=== PATIENT | male | born 1980 | race African-American/Black ===

== ENCOUNTER 2016-08-16 00:18 | Emergency (ER) | payer SELFPAY ==
[2016-08-16 01:27] VITALS: BP 128/76; PULSE 58; TEMP 97.4; BMI 29.9
[2016-08-16] MEDS ORDERED: KETOROLAC TROMETHAMINE 60 MG/2 ML VIAL IM ONE (02:34)
[2016-08-16] MEDS ORDERED: diazePAM 5 MG TABLET PO ONE (02:35)
--- NOTE | 2016-08-16 02:36 | PDOC ---
History of Present Illness - General History Source: Patient Exam Limitations: No Limitations - History of Present Illness Initial Comments: 08/16/16 03:03 The patient is a 36 year old male, with significant past medical history of chronic back pain secondary to herniated discs, who presents today complaining of lower back pain. The patient states that he could not get out of bed this morning because his back went out. He notes that his back was hurting throughout the week, but was able to take tramadol and galaxin with relief. However, today the pain was unbearable and the patient is unable to get out of bed. The patient works at [employer] and does heavy lifting. Denies paresthesias of the lower extremities. Denies any recent trauma. Denies neck pain. Allergies: none reported Dr. Lauro Mendoza <Chantell Gutierrez - Last Filed: 08/16/16 03:29> <Scarlet Hernandes - Last Filed: 08/17/16 05:14> - General Chief Complaint: Pain, Acute Stated Complaint: BACK PAIN Time Seen by Provider: 08/16/16 02:15 Past History <Chantell Gutierrez - Last Filed: 08/16/16 03:29> - Past Medical History Other medical history: Pt denies - Psycho/Social/Smoking Cessation Hx Anxiety: No Suicidal Ideation: No Smoking Status: No Smoking History: Never smoked Number of Cigarettes Smoked Daily: 0 Information on smoking cessation initiated: No Hx Alcohol Use: No Drug/Substance Use Hx: No Substance Use Type: None <Scarlet Hernandes - Last Filed: 08/17/16 05:14> - Past Medical History Allergies/Adverse Reactions: Allergies Allergy/AdvReac Type Severity Reaction Status Date / Time No Known Allergies Allergy Verified 08/16/16 01:24 Home Medications: Ambulatory Orders No Home Medications 0 dose .ROUTE UTDICT 05/02/12 Review of Systems - Review of Systems Able to Perform ROS?: Yes Comments:: 08/16/16 03:05 GENERAL/CONSTITUTIONAL: No fever or chills. No weakness. HEAD, EYES, EARS, NOSE AND THROAT: No change in vision. No ear pain or discharge. No sore throat. CARDIOVASCULAR: No chest pain or shortness of breath. RESPIRATORY: No cough, wheezing, or hemoptysis. GASTROINTESTINAL: No nausea, vomiting, diarrhea or constipation. GENITOURINARY: No dysuria, frequency, or change in urination. MUSCULOSKELETAL:+lower back pain. No joint or muscle swelling or pain. No neck. SKIN: No rash NEUROLOGIC: No headache, vertigo, loss of consciousness, or change in strength/ sensation. ENDOCRINE: No increased thirst. No abnormal weight change. HEMATOLOGIC/LYMPHATIC: No anemia, easy bleeding, or history of blood clots. ALLERGIC/IMMUNOLOGIC: No hives or skin allergy. <MattChantell - Last Filed: 08/16/16 03:29> *Physical Exam - Vital Signs Last Vital Signs Temp Pulse Resp BP Pulse Ox 97.4 F L 58 L 19 128/76 97 08/16/16 01:25 08/16/16 01:08/16/16 01:08/16/16 01:08/16/16 01:25 - Physical Exam Comments: 08/16/16 03:06 GENERAL: Awake, alert, and fully oriented, in no acute distress HEAD: No signs of trauma EYES: PERRLA, EOMI, sclera anicteric, conjunctiva clear ENT: Auricles normal inspection, hearing grossly normal, nares patent, oropharynx clear without exudates. Moist mucosa NECK: Normal ROM, supple, no lymphadenopathy, JVD, or masses LUNGS: Breath sounds equal, clear to auscultation bilaterally. No wheezes, and no crackles HEART: Regular rate and rhythm, normal S1 and S2, no murmurs, rubs or gallops ABDOMEN: Soft, nontender, normoactive bowel sounds. No guarding, no rebound. No masses BACK: +lumbar spine tenderness. EXTREMITIES: +Pain with straight leg raise bilaterally. Decreased reflexes in the knee. No edema. No clubbing or cyanosis. No cords, erythema, or tenderness NEUROLOGICAL: Cranial nerves II through XII grossly intact. Normal speech, normal gait SKIN: Warm, Dry, normal turgor, no rashes or lesions noted. <LynnenestorChantell - Last Filed: 08/16/16 03:29> - Vital Signs Last Vital Signs Temp Pulse Resp BP Pulse Ox 97.4 F L 58 L 19 128/76 97 08/16/16 01:25 08/16/16 01:08/16/16 01:08/16/16 01:08/16/16 01:25 <Scarlet Hernandes - Last Filed: 08/17/16 05:14> ED Treatment Course - RADIOLOGY Radiograph Interpretation: 08/16/16 03:29 Exam: CT lumbar spine without contrast Images: [id number] Clinical indication: Lower back pain. Findings: The bone mineralization appears normal. The vertebral body heights and disc spaces are preserved. Mild spondylosis is noted. Anatomic alignment of the lumbar spine is maintained. No fracture or listhesis is seen. No adenopathy collection or hematoma is seen in the paraspinal soft tissues. The sacrum is unremarkable. The visualized retroperitoneum and pelvic contents are unremarkable. Impression: No acute abnormality seen in the lumbar spine, sacrum, visualized retroperitoneum or pelvis. THIS DOCUMENT HAS BEEN ELECTRONICALLY SIGNED Darian Bermudez M.D. <Chantell Gutierrez - Last Filed: 08/16/16 03:29> Medical Decision Making - Medical Decision Making 08/16/16 03:24 Patient Name: Ezequiel Longoria This is a preliminary report by imaging net applications developer Exam: CT lumbar spine without contrast Images: [id number] Clinical indication: Lower back pain. Findings: The bone mineralization appears normal. The vertebral body heights and disc spaces are preserved. Mild spondylosis is noted. Anatomic alignment of the lumbar spine is maintained. No fracture or listhesis is seen. No adenopathy collection or hematoma is seen in the paraspinal soft tissues. The sacrum is unremarkable. The visualized retroperitoneum and pelvic contents are unremarkable. Impression: No acute abnormality seen in the lumbar spine, sacrum, visualized retroperitoneum or pelvis. THIS DOCUMENT HAS BEEN ELECTRONICALLY SIGNED 08/17/16 05:09 Pt states that all of a sudden at home his back "gave out on" him. He is in extreme pain. Paraspinal and spinal pain. Pt has normal reflexes and he has normal vital signs. Pt also has completelyy normal lumbar spine CT scan. Pt tells me that he injured his back 5 years ago and he has been in and out of work , on disability for a year, and he just went back to work. No need for further workup, as exam and imaging are normal. Pt was confronted and asked to leave. He is requesting narcotics, but I tell him NSAIDS are sufficient to treat muscular pain. <Scarlet Hernandes - Last Filed: 08/17/16 05:14> *DC/Admit/Observation/Transfer - Attestations Scribe Attestion: 08/16/16 03:06 Documentation prepared by MEL Penn, acting as medical intern for Scarlet Hernandes MD. <Chantell Gutierrez - Last Filed: 08/16/16 03:29> - Discharge Dispostion Admit: No <Scarlet Hernandes - Last Filed: 08/17/16 05:14> Diagnosis at time of Disposition: Chronic back pain - Discharge Dispostion Disposition: HOME Condition at time of disposition: Stable - Patient Instructions Printed Discharge Instructions: Managing Chronic Low Back Pain
[2016-08-16] MEDS ORDERED: KETOROLAC TROMETHAMINE 60 MG/2 ML VIAL ONE (03:36)
[2016-08-16] MEDS ORDERED: diazePAM 5 MG TABLET ONE (03:36)
== END 2016-08-16 07:55 | disposition home or self-care (01) ==
LOC: JER 00:18
PROC: 3E0233Z Introduction of Anti-inflammatory into Muscle, Percutaneous Approach (ICD-10-PCS; principal; 2016-08-16)
DX: M54.5 Low back pain (principal); G89.29 Other chronic pain
CPT/HCPCS: 72131-TC; 99281-25; 99282-25

== ENCOUNTER 2023-10-04 09:50 | Day surgery (SDC) | payer OTHER ==
[2023-09-29 15:16] VITALS: BMI 34.9
[2023-10-04 10:14] VITALS: TEMP 97.3
[2023-10-04] MEDS ORDERED: PROPOFOL 120 ML ONE (12:00)
[2023-10-04 13:00] VITALS: BP 126/86; PULSE 70; RESP 16
== END 2023-10-04 13:10 | disposition home or self-care (01) ==
LOC: FASU-ENDO 09:50
PROVIDERS: ATTEND Internal Medicine Gastroenterology
PROC: 0DBN8ZX Excision of Sigmoid Colon, Via Natural or Artificial Opening Endoscopic, Diagnostic (ICD-10-PCS; principal; 2023-10-04 12:01)
DX: Z12.11 Encounter for screening for malignant neoplasm of colon (principal); D12.5 Benign neoplasm of sigmoid colon; K57.30 Diverticulosis of large intestine without perforation or abscess without bleeding; K64.4 Residual hemorrhoidal skin tags
CPT/HCPCS: 88305-TC